=== PATIENT | female | born 1960 | race Caucasian/White ===

== ENCOUNTER 2017-07-09 12:13 | Emergency (ER) | payer BC, OTHER ==
[~2017-07-09 12:13] MED LIST: FLUO20CA8; LISI40TA; OLAN20TA7; RISP1TAB43
--- NOTE | 2017-07-09 12:43 | PHYS DOC ---
Past History Past Medical History: Other Past Surgical History: Other Smoking: Cigarettes, Less than 1pk/day Alcohol Use: Occasionally Drug Use: None Adult General Chief Complaint Chief Complaint: SHOULDER INJURY HPI HPI 57-year-old right-handed female patient states she tried to put a large box in freezer while she was working at [employer]. Her hand above her head and felt a pop in her left shoulder and since then has been feeling in her limited range of motion. Patient denies focal neuro deficit, other injuries, fever and chills. Patient rated her pain moderate if she is not moving her hand and was able to drive from her work to here. Review of Systems Review of Systems Constitutional: Denies fever or chills [] Eyes: Denies change in visual acuity, redness, or eye pain [] HENT: Denies nasal congestion or sore throat [] Respiratory: Denies cough or shortness of breath [] Cardiovascular: No additional information not addressed in HPI [] GI: Denies abdominal pain, nausea, vomiting, bloody stools or diarrhea [] : Denies dysuria or hematuria [] Musculoskeletal: Denies back pain, reports joint pain [] Integument: Denies rash or skin lesions [] Neurologic: Denies headache, focal weakness or sensory changes [] Endocrine: Denies polyuria or polydipsia [] All other systems were reviewed and found to be within normal limits, except as documented in this note. Allergies Allergies Allergies Coded Allergies Type Severity Reaction Last Updated Verified No Known Drug Allergies 08/08/13 No Physical Exam Physical Exam Constitutional: Well developed, well nourished, mild distress, non-toxic appearance. [] HENT: Normocephalic, atraumatic Eyes: PERRLA, EOMI, conjunctiva normal, no discharge. [] Neck: Normal range of motion, no tenderness, supple, no stridor. [] Cardiovascular:Heart rate regular rhythm, no murmur [] Lungs & Thorax: Bilateral breath sounds clear to auscultation [] Abdomen: Bowel sounds normal, soft, no tenderness, no masses, no pulsatile masses. [] Skin: Warm, dry, no erythema, no rash. [] Back: No tenderness, no CVA tenderness. [] Extremities: Left shoulder with deformity in AC joint area associated with tenderness and limited range of motion, no neurovascular deficit. Neurologic: Alert and oriented X 3, normal motor function, normal sensory function, no focal deficits noted. [] Psychologic: Affect normal, judgement normal, mood normal. [] EKG EKG [] Radiology/Procedures Radiology/Procedures [] [address] [address] IMAGING REPORT Signed PATIENT: SAMIR NEUMANN ACCOUNT: [id number] : 1960 LOCATION: ER AGE: 57 SEX: F EXAM STATUS: PRE ER ORD. PHYSICIAN: CAMI MCKEON MD REASON: injury and pain PROCEDURE: SHOULDER 2+V LEFT Left shoulder AP and scapular x-rays 3 views History: Left shoulder lifting injury with popping and pain Findings: There is acromioclavicular joint dissociation the joint interval measuring 12 mm, and mild superior distraction of the lateral clavicle indicating disruption of the joint capsule and possibly the coracoclavicular ligament. No fracture. No humeral head dislocation. Impression: Acromioclavicular joint dissociation as described above. DICTATED AND SIGNED BY: BISMARK BOSCH MD DATE: 07/09/17 [id number] CC: CAMI MCKEON MD; JONATHAN MCCORMACK ~ Course & Med Decision Making Course & Med Decision Making Pertinent Imaging studies reviewed. (See chart for details) Evaluation of patient in ER showed 57-year-old female patient with injury to left shoulder while she was at work. Patient had deformity and tenderness of AC joint area and x-ray showed AC joint separation with 1.5 cm gap. Patient did not want to have pain medication in ER. Shoulder immobilizer was applied and patient instructed to follow up with on-call orthopedic physician for possible surgical repair of AC separation. [] Dragon Disclaimer Dragon Disclaimer This electronic medical record was generated, in whole or in part, using a voice recognition dictation system. Departure Departure: Impression: Primary Impression: Acromioclavicular separation Disposition: HOME, SELF-CARE (At 1254) Condition: IMPROVED Referrals: JONATHAN MCCORMACK (PCP) Patient Instructions: Shoulder Separation Additional Instructions: Follow-up with on-call orthopedic physician , call [phone] tomorrow to make an appointment Return to ER if not getting better Scripts Naproxen (NAPROSYN) 500 Mg Tablet 1 TAB PO BID, #30 TAB 1 Refill Prov: CAMI MCKEON MD 07/09/17 Hydrocodone Bit/Acetaminophen (NORCO 5-325 TABLET) 1 Each Tablet 1 TAB PO PRN Q6HRS Y for PAIN, #20 TAB 0 Refills Prov: CAMI MCKEON MD 07/09/17 CAMI MCKEON MD Jul 09, 2017 12:43
--- NOTE | 2017-07-09 12:54 | RAD ---
Left shoulder AP and scapular x-rays 3 views History: Left shoulder lifting injury with popping and pain Findings: There is acromioclavicular joint dissociation the joint interval measuring 12 mm, and mild superior distraction of the lateral clavicle indicating disruption of the joint capsule and possibly the coracoclavicular ligament. No fracture. No humeral head dislocation. Impression: Acromioclavicular joint dissociation as described above.
[2017-07-09] MEDS ORDERED: NAPR-683 PO (13:00)
[2017-07-09] MEDS ORDERED: HYDR-971 PO (13:00)
[2017-07-09 13:10] VITALS: BP 158/90
== END 2017-07-09 13:11 | disposition home or self-care (01) ==
LOC: ER 12:13
DX: S43.102A Unspecified dislocation of left acromioclavicular joint, initial encounter (principal); F17.210 Nicotine dependence, cigarettes, uncomplicated; X50.9XXA Other and unspecified overexertion or strenuous movements or postures, initial encounter; Y93.89 Activity, other specified; Y99.8 Other external cause status; Y92.89 Other specified places as the place of occurrence of the external cause
CPT/HCPCS: 29105; 73030; 99284

== ENCOUNTER → 2017-09-25 | Outpatient (CLI) | payer OTHER ==
[~2017-09-25] MED LIST changes: +HYDR-971 PO; +NAPR-683 PO
--- NOTE | 2017-09-25 14:06 | RAD ---
Chest, 2 views, 09/25/2017: HISTORY: Preop evaluation for shoulder surgery The heart size and pulmonary vascularity are normal. A small dense nodule in the right upper chest is probably a granuloma. No acute infiltrate is seen. There is no evidence of pleural fluid. Mild scattered spurs are present in the spine. A chronic left AC joint separation is again noted. IMPRESSION: No acute cardiopulmonary abnormality is detected. Electronically signed by: Chano Hollis MD (09/25/2017 2:03 PM) [facility]
== END | disposition home or self-care (01) ==
LOC: PMG 12:44
PROVIDERS: ATTEND Family Medicine
DX: R91.1 Solitary pulmonary nodule (principal); R05 Cough; Z87.891 Personal history of nicotine dependence
CPT/HCPCS: 71046

== ENCOUNTER 2018-08-27 13:48 | Emergency (ER) | payer OTHER ==
[~2018-08-27] VITALS: Ht 168.9 cm; Wt 65.8 kg
[~2018-08-27 13:48] MED LIST changes: +HYDR-3165 PO; -HYDR-971 PO; +OLAN20TA15; -OLAN20TA7
[2018-08-27 14:03] VITALS: BP 160/79
[2018-08-27] MEDS ORDERED: CARBAMIDE PEROXIDE 6.5% OTIC SOLUTION 15ML BOTTLE. AU ONE (14:15)
--- NOTE | 2018-08-27 14:17 | PHYS DOC ---
Past History Past Medical History: Anxiety, Hypertension, [place] Past Surgical History: No Surgical History Smoking: Cigarettes, Less than 1pk/day Additional Smoking Information: 03/21 PPD Alcohol Use: None Drug Use: None Adult General Chief Complaint Chief Complaint: EARACHE/EAR PAIN HPI HPI Patient is a 58-year-old female presents with bilateral ear discomfort, and muffled hearing for the past week to 2 weeks. Patient was seen by her primary care physician, started on antibiotics approximately a week ago and was not getting any better. Was seen last Monday and a CT scan was being arranged as an outpatient but still has not come through. Patient notes that she's had blurred vision for this same time frame. No specific weakness in her arms or legs. No change in speech patterns per her who is with her. No headache. No photophobia. Nothing seems to make the symptoms better or worse. Patient reports hearing a pulse in both the ears. Denies using cotton swabs within the ears.[] Review of Systems Review of Systems Constitutional: Denies fever or chills [] Eyes: See history of present illness[] HENT: Denies nasal congestion or sore throat [] Respiratory: Denies cough or shortness of breath [] Cardiovascular: No chest pain or palpitations[] GI: Denies abdominal pain, nausea, vomiting, bloody stools or diarrhea [] : Denies dysuria or hematuria [] Musculoskeletal: Denies back pain or joint pain [] Integument: Denies rash or skin lesions [] Neurologic: Denies headache, focal weakness or sensory changes [] Endocrine: Denies polyuria or polydipsia [] All other systems were reviewed and found to be within normal limits, except as documented in this note. Allergies Allergies Allergies Coded Allergies Type Severity Reaction Last Updated Verified erythromycin base Allergy Unknown REDNESS 08/27/18 Yes Physical Exam Physical Exam Constitutional: Well developed, well nourished, no acute distress, non-toxic appearance. [] HENT: Normocephalic, atraumatic, bilateral external ears normal, TMs are obstructed by cerumen bilaterally. No mastoid tenderness. Oropharynx moist, no oral exudates, nose normal. [] Eyes: PERRLA, EOMI, conjunctiva normal, no discharge. Normal fundi, anterior chamber is clear on slit lamp, no dendritic pattern identified.[] Neck: Normal range of motion, no tenderness, supple, no stridor. [] Cardiovascular:Heart rate regular rhythm, no murmur [] Lungs & Thorax: Bilateral breath sounds clear to auscultation [] Abdomen: Not examined[] Skin: Warm, dry, no erythema, no rash. [] Back: No tenderness, no CVA tenderness. [] Extremities: No tenderness, no cyanosis, no clubbing, ROM intact, no edema. [] Neurologic: Alert and oriented X 3, normal motor function, normal sensory function, no focal deficits noted. [] Psychologic: Affect normal, judgement normal, mood normal. [] Current Patient Data Vital Signs Vital Signs Date Time Temp Pulse Resp B/P (MAP) Pulse Ox O2 Delivery O2 Flow Rate FiO2 08/27/18 14:03 97.7 71 17 97 EKG EKG [] Radiology/Procedures Radiology/Procedures CT HEAD WO CONTRAST Indication: Vision changes. Bilateral ear pain. Exposure: One or more of the following individualized dose reduction techniques were utilized for this examination: 1. Automated exposure control 2. Adjustment of the mA and/or kV according to patient size 3. Use of iterative reconstruction technique. Technique: Standard imaging without intravenous contrast. Comparison with images from 12/12/2014, no report available Posterior fossa unremarkable. No evidence of acute intracranial hemorrhage, mass effect, midline shift or abnormal extra-axial fluid collection. Ventricles and sulci are within normal limits. Nicholas-white matter distinction is maintained. The orbits are symmetric. No notable scalp swelling. Partially visualized paranasal sinuses are clear. There is some opacification of the bilateral mastoids. No acute skull abnormality. IMPRESSION: 1. No evidence of acute intracranial hemorrhage or mass effect. 2. Nonspecific mastoid sinus disease.[] Course & Med Decision Making Course & Med Decision Making Pertinent Labs and Imaging studies reviewed. (See chart for details) ED course: Patient arrived, was placed in bed, and tolerated exam well. She was transported to and from [place] with any complications. She had her ears irrigated with minimal improvement. Discussed findings and plan with patient and her family who voiced understanding. All questions were answered. She was discharged in improved condition. Medical decision making: There is no evidence of significant mastoiditis, no meningitis or encephalitis. We will have patient continue current course of antibiotics. We will have her continue the irrigation with the Debrox.[] Dragon Disclaimer Dragon Disclaimer This electronic medical record was generated, in whole or in part, using a voice recognition dictation system. Departure Departure: Impression: Primary Impression: Mastoiditis Additional Impression: Impacted cerumen of both ears Disposition: 01 HOME, SELF-CARE Condition: IMPROVED Referrals: JONATHAN MCCORMACK (PCP) Follow-up in 2 days Patient Instructions: Cerumen Impaction, Mastoiditis Additional Instructions: Follow-up with your regular doctor in 2 days. Take your medication as prescribed. Return to the ER if worsening pain or any other concerns. Scripts Meloxicam (MELOXICAM) 7.5 Mg Tablet 7.5 MG PO DAILY for PAIN, #20 TAB Prov: ELSA HAN DO 08/27/18 Carbamide Peroxide (EAR DROPS) 15 Ml Drops 5 DROP OT BID for cerumen for 4 Days, DROP Let the drops sit in the ear for 5-10 minutes, then flush out with warm water in the shower. Prov: ELSA HAN DO 08/27/18 Problem Qualifiers Primary Impression: Mastoiditis Laterality: bilateral Qualified Codes: H70.93 - Unspecified mastoiditis, bilateral ELSA HAN DO Aug 27, 2018 14:17
--- NOTE | 2018-08-27 14:40 | RAD ---
CT HEAD WO CONTRAST Indication: Vision changes. Bilateral ear pain. Exposure: One or more of the following individualized dose reduction techniques were utilized for this examination: 1. Automated exposure control 2. Adjustment of the mA and/or kV according to patient size 3. Use of iterative reconstruction technique. Technique: Standard imaging without intravenous contrast. Comparison with images from 12/12/2014, no report available Posterior fossa unremarkable. No evidence of acute intracranial hemorrhage, mass effect, midline shift or abnormal extra-axial fluid collection. Ventricles and sulci are within normal limits. Nicholas-white matter distinction is maintained. The orbits are symmetric. No notable scalp swelling. Partially visualized paranasal sinuses are clear. There is some opacification of the bilateral mastoids. No acute skull abnormality. IMPRESSION: 1. No evidence of acute intracranial hemorrhage or mass effect. 2. Nonspecific mastoid sinus disease. Electronically signed by: Martell Londono MD (08/27/2018 2:38 PM) [facility]
[2018-08-27] MEDS ORDERED: CARB-116 OT (15:42)
[2018-08-27] MEDS ORDERED: MELO7.5T29 PO (15:42)
== END 2018-08-27 15:50 | disposition home or self-care (01) ==
LOC: ER 13:48
DX: H70.93 Unspecified mastoiditis, bilateral (principal); H61.23 Impacted cerumen, bilateral; H53.8 Other visual disturbances; F41.9 Anxiety disorder, unspecified; I10 Essential (primary) hypertension; I25.2 Old myocardial infarction; F17.210 Nicotine dependence, cigarettes, uncomplicated; Z88.1 Allergy status to other antibiotic agents
CPT/HCPCS: 69209; 70450; 99284-25

== ENCOUNTER → 2019-04-08 | Outpatient (CLI) | payer BC ==
[~2019-04-08] MED LIST changes: +CARB-116 OT; +FLUO20CA19; -FLUO20CA8; +MELO7.5T29 PO
--- NOTE | 2019-04-08 10:00 | RAD ---
Study: CT abdomen and pelvis without contrast Indication: Left abdominal pain. Comparison: 03/23/2015 Technique: Helical CT imaging performed of the abdomen and pelvis without the use of intravenous contrast. Sagittal and coronal reformats were obtained. One or more of the following individualized dose reduction techniques were utilized for this examination: 1. Automated exposure control 2. Adjustment of the mA and/or kV according to patient size 3. Use of iterative reconstruction technique. Findings: Unremarkable visualized lungs and heart. Faintly visualized low-attenuation focus within the right hepatic lobe on image 39 series 2 was present on the prior. Unremarkable gallbladder, pancreas, spleen and adrenal glands. Unchanged tiny low-attenuation focus within the mid right kidney. No hydroureteronephrosis. Unremarkable urinary bladder. The uterus is within normal limits. No adnexal mass. A few colonic diverticuli are noted without findings of diverticulitis. The majority of the colon is collapsed. Unremarkable appendix. Nonobstructed small bowel. Limited evaluation stomach due to underdistention. Scattered vascular calcifications. No newly seen lymphadenopathy. No free fluid or air. Severe discogenic arthrosis at L1-L2. Moderate discogenic arthrosis at L2-L3. Grade 1 anterolisthesis of L4 on L5. Trace retrolisthesis of L2 on L3. Scattered Schmorl's nodes. Multilevel facet degeneration. Multilevel central canal stenosis that is most pronounced at L4-L5 and possibly severe at this level in the setting of a disc bulge/protrusion. Impression: 1. No acute abnormality seen throughout the abdomen or pelvis. A few colonic diverticuli are noted however without findings of diverticulitis. 2. Advanced multilevel/multifactorial degenerative changes involving the lumbar spine with possible severe central canal stenosis at L4-L5. Electronically signed by: JAMILA GARCÍA MD (04/08/2019 9:57 AM) [facility]
[2019-04-08 11:01] LABS: BASO # 0.1 x10^3/uL (0.0-0.2); BASO % 1 % (0-3); EOS # 0.1 x10^3/uL (0.0-0.7); EOS % 1 % (0-3); HEMATOCRIT 39.6 % (36.0-47.0); HEMOGLOBIN 13.5 g/dL (12.0-15.5); LYMPH # 1.6 x10^3/uL (1.0-4.8); LYMPH % 36 % (24-48); MEAN CORPUSCULAR HEMOGLOBIN 34 pg (25-35); MEAN CORPUSCULAR HGB CONC 34 g/dL (31-37); MEAN CORPUSCULAR VOLUME 101 fL (79-100); MONO # 0.6 x10^3/uL (0.0-1.1); MONO % 14 % (0-9); NEUT # 2.1 x10^3uL (1.8-7.7); NEUT % 48 % (31-73); PLATELET COUNT 184 x10^3/uL (140-400); RED BLOOD COUNT 3.93 x10^6/uL (3.50-5.40); RED CELL DISTRIBUTION WIDTH 13.5 % (11.5-14.5); WHITE BLOOD COUNT 4.4 x10^3/uL (4.0-11.0)
[2019-04-08 11:16] LABS: ALBUMIN 3.9 g/dL (3.4-5.0); CALCIUM 9.2 mg/dL (8.5-10.1); CREATININE 0.6 mg/dL (0.6-1.0); GFR 102.7; POTASSIUM 3.6 mmol/L (3.5-5.1); TOTAL BILIRUBIN 0.9 mg/dL (0.2-1.0); TOTAL PROTEIN 7.9 g/dL (6.4-8.2)
[2019-04-08 12:06] LABS: SEDIMENTATION RATE 23 (0-25)
== END | disposition home or self-care (01) ==
LOC: CT 09:21
PROVIDERS: ATTEND Physician Assistant Medical
DX: M43.16 Spondylolisthesis, lumbar region (principal); K57.30 Diverticulosis of large intestine without perforation or abscess without bleeding; M47.816 Spondylosis without myelopathy or radiculopathy, lumbar region
CPT/HCPCS: 36415; 74176; 80053; 80061; 85025; 85651

== ENCOUNTER 2020-09-16 11:27 | Emergency (ER) | payer BC ==
[~2020-09-16] VITALS: Ht 167.6 cm; Wt 68.2 kg
[~2020-09-16 11:27] MED LIST changes: -FLUO20CA19; +FLUO20CA20; -LISI40TA; +LISI40TA6
[2020-09-16 11:42] VITALS: BP 129/76
[2020-09-16] MEDS ORDERED: AMOXICILLIN/K CLAV 875/125MG TABLET. PO ONE (11:45)
[2020-09-16] MEDS ORDERED: NEOMY/BACITR/POLYMYXIN OINT PACKET. TP ONE (11:45)
[2020-09-16] MEDS ORDERED: AMOX1TAB61 PO (11:53)
--- NOTE | 2020-09-16 11:54 | PHYS DOC ---
Past History Past Medical History: Anxiety, Depression, Hypertension, [place] Past Surgical History: No Surgical History Smoking: Cigarettes, Less than 1pk/day Alcohol Use: None Drug Use: None General Adult EDM: Chief Complaint: ANIMAL BITE HPI: HPI: 60-year-old female presents with report of dog bite above left eye and to right wrist which occurred just prior to arrival. Patient reports occurred with her own dogs which are domesticated. Patient reports they missed their last dose of rabies vaccination secondary to COVID-19 limitations in getting dog to the vet h owever have a been at home the whole time. Denies known exposure to rabies. Dogs have otherwise been acting normally. Patient reports last tetanus booster less than 5 years ago. Review of Systems: Review of Systems: Constitutional: Denies fever or chills Eyes: Denies redness or eye pain HENT: Denies epistaxis Musculoskeletal: Reports pain to right wrist at site of dog bite; denies deformity Integument: Reports puncture wounds to right wrist and above left eye Neurologic: Denies headache, focal weakness or sensory changes Complete systems were reviewed and found to be within normal limits, except as documented in this note. Current Medications: Current Meds: Current Medications Medications (Trade) Dose Ordered Sig/Ángel Start Time Stop Time Status Last Admin Dose Admin Amoxicillin/ Clavulanate Potassium (Augmentin 875/ 125mg) 1 tab 1X ONCE 09/16/20 11:45 09/16/20 11:46 DC Neomycin/ Polymyxin/ Bacitracin (Triple Antibiotic Ointment) 1 pkt 1X ONCE 09/16/20 11:45 09/16/20 11:46 DC Allergies: Allergies: Allergies Coded Allergies Type Severity Reaction Last Updated Verified erythromycin base Allergy Unknown REDNESS 08/27/18 Yes Physical Exam: PE: Constitutional: Well developed, well nourished, no acute distress, non-toxic appearance HENT: Normocephalic, small abrasion/puncture wound to 1 o'clock position above left eye, no gaping appreciated Eyes: PERRL, EOMI, conjunctiva normal, no discharge Neck: Normal range of motion, no tenderness, supple Lungs & Thorax: No respiratory distress, equal chest rise and fall Skin: Warm, dry, no erythema small abrasion/puncture wound above left eye and multiple noted to dorsal and ventral aspects right wrist-bleeding controlled Extremities: No bony tenderness, ROM intact, no edema, right radial pulse +2, tendon function intact to right hand and wrist Neurologic: Alert and oriented X 3, no focal deficits noted Psychologic: Affect normal, judgment normal Current Patient Data: Vital Signs: Vital Signs Date Time Temp Pulse Resp B/P (MAP) Pulse Ox O2 Delivery O2 Flow Rate FiO2 09/16/20 11:42 95 18 129/76 (93) 98 EKG: EKG: [] Radiology/Procedures: Radiology/Procedures: [] Heart Score: C/O Chest Pain: N/A Course & Med Decision Making: Course & Med Decision Making Patient presents with domesticated dog bites to right wrist and above left eye. Tendon function intact to right wrist and hand. Limb neurovascular intact. No eye involvement. No gaping of wounds requiring suture repair. Wounds cleaned and copiously irrigated. Empiric antibiotic ointment applied. Patient's tetanus is up-to-date. Empiric antibiotic initiated. Patient stable for discharge with outpatient follow-up with PCP. Discussed findings and plan with patient and family, who acknowledge understanding and agreement. Santosh Disclaimer: Santosh Disclaimer: This electronic medical record was generated, in whole or in part, using a voice recognition dictation system. Departure Departure: Impression: Primary Impression: Dog bite Qualified Codes: W54.0XXA - Bitten by dog, initial encounter Disposition: HOME / SELF CARE / HOMELESS Condition: STABLE Referrals: JONATHAN MCCORMACK (PCP) Patient Instructions: Animal Bite, [id number] Additional Instructions: Do not soak your wound. You may shower. Clean wound daily with soap and water. Change dressing 2 times daily. Use over the counter antibiotic ointment with each dressing change. Use over the counter Tylenol and /or Ibuprofen for pain or discomfort. May ICE area 20 min on then leave off next 20 mins. Repeat several times daily as needed for swelling or pain. Scripts Amoxicillin/Potassium Clav (AUGMENTIN 875-125 TABLET) 1 Each Tablet 1 TAB PO BID for Dog bite for 7 Days, #14 TAB 0 Refills Prov: JULIO MARRERO DO 09/16/20 JULIO MARRERO DO Sep 16, 2020 11:54
== END 2020-09-16 12:07 | disposition home or self-care (01) ==
LOC: ER 11:27
DX: S61.531A Puncture wound without foreign body of right wrist, initial encounter (principal); S01.83XA Puncture wound without foreign body of other part of head, initial encounter; I10 Essential (primary) hypertension; I25.2 Old myocardial infarction; F17.210 Nicotine dependence, cigarettes, uncomplicated; Z88.1 Allergy status to other antibiotic agents; W54.0XXA Bitten by dog, initial encounter; Y93.89 Activity, other specified; Y92.89 Other specified places as the place of occurrence of the external cause; Y99.8 Other external cause status
CPT/HCPCS: 99283

== ENCOUNTER 2020-09-17 12:37 | Emergency (ER) | payer BC ==
[~2020-09-17] VITALS: Ht 167.6 cm; Wt 68.2 kg
[~2020-09-17 12:37] MED LIST changes: +AMOX1TAB61 PO
[2020-09-17] MEDS ORDERED: MORPHINE SULFATE 10 MG/ML SYRINGE. ONE (13:10)
[2020-09-17] MEDS: MORPHINE SULFATE 10 MG/ML SYRINGE. SQ ONE (13:15)
[2020-09-17] MEDS: ONDANSETRON ODT 4 MG TAB.RAPDIS PO ONE (13:15)
--- NOTE | 2020-09-17 13:59 | RAD ---
2 views of each forearm 09/17/2020 1:22 PM Indication: Reason: dog bites to bilateral forearms / Spl. Instructions: / History: Comparison: None Findings: There is a comminuted fracture of the distal left ulna. Fracture does not involve the artic ular surface. There is mild ulnar displacement of the distal fracture fragment. There is mild volar a ngulation. Overlying soft tissue swelling and deformity is seen. No other fracture or dislocation is seen. No right-sided fracture is seen. No radiopaque foreign bodies are identified. IMPRESSION: Comminuted fracture of the distal left ulna. Electronically signed by: Ernie Clancy MD (09/17/2020 1:56 PM) [id number]
[2020-09-17] MEDS ORDERED: IV NORMAL SALINE 50ML 50 ML ONE (14:43)
[2020-09-17] MEDS ORDERED: PIPERACILLIN/TAZOBACTAM 3.375 GM VIAL IV ONE (14:44)
[2020-09-17 14:45] LABS: BASO # 0.1 x10^3/uL (0.0-0.2); BASO % 1 % (0-3); EOS % 0 % (0-3); HEMATOCRIT 39.4 % (36.0-47.0); HEMOGLOBIN 13.6 g/dL (12.0-15.5); LYMPH % 10 % (24-48); MEAN CORPUSCULAR HEMOGLOBIN 36 pg (25-35); MEAN CORPUSCULAR HGB CONC 35 g/dL (31-37); MEAN CORPUSCULAR VOLUME 103 fL (79-100); MONO # 0.8 x10^3/uL (0.0-1.1); MONO % 8 % (0-9); NEUT % 81 % (31-73); PLATELET COUNT 132 x10^3/uL (140-400); RED BLOOD COUNT 3.83 x10^6/uL (3.50-5.40); RED CELL DISTRIBUTION WIDTH 13.7 % (11.5-14.5); WHITE BLOOD COUNT 9.8 x10^3/uL (4.0-11.0)
[2020-09-17] MEDS: HYDROmorphone PF 1 MG/ML DISP.SYRIN IVP ONE ×4 (14:54→18:50)
[2020-09-17 14:55] LABS: CALCIUM 8.9 mg/dL (8.5-10.1); CREATININE 0.6 mg/dL (0.6-1.0); POTASSIUM 4.1 mmol/L (3.5-5.1)
[2020-09-17] MEDS: PIPERACILLIN/TAZOBACTAM 3.375 GM in IV NORMAL SALINE 50ML 50 ML IV ONE (14:55)
[2020-09-17 15:01] LABS: ALBUMIN 4.1 g/dL (3.4-5.0); ALBUMIN/GLOBULIN RATIO 1.1 (1.0-1.7); TOTAL BILIRUBIN 1.3 mg/dL (0.2-1.0); TOTAL PROTEIN 7.7 g/dL (6.4-8.2)
--- NOTE | 2020-09-17 15:33 | PHYS DOC ---
Past History Past Medical History: Anxiety, Depression, Hypertension, [place] Past Surgical History: No Surgical History Smoking: Cigarettes, Less than 1pk/day Alcohol Use: None Drug Use: None Adult General Chief Complaint Chief Complaint: ANIMAL BITE HPI HPI Patient is a 60-year-old female presenting for dog bite. She was seen yesterday for dog bite as well. She has a Pomeranian, a pitbull and [place] Gaitan at home. She reports yesterday breaking up a fight between her dogs when her pit bull bit her right forearm. She was seen and evaluated at our facility, received appropriate care such as updating tetanus, site was cleaned and covered, and patient was sent home on Augmentin. Reports within 30 minutes of being home, her [place] Gaitan bit her left forearm. She reported immediate focal pain that was ongoing but in fear of having her dogs removed from her, she did not present for evaluation. She reports focal pain that is sharp in nature and nonradiating that persisted overnight. She slept poorly, states she was left alone at times when her was not home and she could not perform activities of daily living such as cleaning herself up after bowel movements due to pain in bilateral arms. She presents today 24 hours after subsequent dog bite to left forearm for evaluation due to ongoing pain. She is concerned that bilateral forearms are broke, she is requesting her right upper extremity be imaged as this was not done yesterday. She reports her dogs are up-to-date on all other vaccines Review of Systems Review of Systems Fourteen body systems of review of systems have been reviewed. See HPI for pertinent positives and negative responses, other tolentino all other systems are negative, non-pertinent or non-contributory Current Medications Current Medications Current Medications Medications (Trade) Dose Ordered Sig/Ángel Start Time Stop Time Status Last Admin Dose Admin Hydromorphone HCl (Dilaudid) 1 mg 1X ONCE 09/17/20 14:30 09/17/20 14:38 DC 09/17/20 14:54 1 MG Morphine Sulfate (Morphine 10mg Syringe) 10 mg STK-MED ONCE 09/17/20 13:10 09/17/20 13:11 DC Ondansetron HCl (Zofran Odt) 4 mg 1X ONCE 09/17/20 13:15 09/17/20 13:16 DC 09/17/20 13:15 4 MG Piperacillin Sod/ Tazobactam Sod (Zosyn) 3.375 gm STK-MED ONCE 09/17/20 14:44 09/17/20 14:44 DC Piperacillin Sod/ Tazobactam Sod 3.375 gm/Sodium Chloride 50 ml @ 100 mls/hr 1X ONCE 09/17/20 14:30 09/17/20 14:59 DC 09/17/20 14:55 100 MLS/HR Sodium Chloride 50 ml @ As Directed STK-MED ONCE 09/17/20 14:43 09/17/20 14:44 DC Allergies Allergies Allergies Coded Allergies Type Severity Reaction Last Updated Verified erythromycin base Allergy Unknown REDNESS 09/17/20 Yes Physical Exam Physical Exam Constitutional: Well developed, well nourished, extremely anxious and appears to be in pain but nontoxic in appearance HENT: Normocephalic, atraumatic, bilateral external ears normal, oropharynx moist, no oral exudates, nose normal. Eyes: PERRLA, EOMI, conjunctiva normal, no discharge. Neck: Normal range of motion, no tenderness, supple, no stridor. Cardiovascular: Heart rate tachycardic, sinus rhythm, no murmurs rubs or gallops Lungs & Thorax: Bilateral breath sounds clear to auscultation Abdomen: Bowel sounds normal, soft, no tenderness, no masses, no pulsatile masses. Nonsurgical abdomen, no peritoneal signs Skin: Warm, dry, no erythema, no rash. Patient not wanting me to unwrap prior dressing that was applied yesterday to right forearm due to pain. Dressing appears mildly soaked with blood otherwise nonconcerning. There is significant puncture and skin breakdown to left forearm consistent with [place] Gaitan bite with no obvious foreign body and/or vessel/nerve involvement, there is no open fracture Back: No tenderness, no CVA tenderness. Extremities: There is focal tenderness to left forearm over area of puncture wound without any anatomical snuffbox tenderness, no cyanosis, no clubbing, ROM intact, no edema. Patient's muscle strength of bilateral upper extremities is 5/5 but there is pain globally with movement due to injury, cap refill of all distal nailbeds less than 3 seconds Neurologic: Alert and oriented X 3, medial radial and ulnar nerves of bilateral upper extremities intact, normal motor & sensory function, no focal deficits noted. Radial pulses bilaterally 2+ Psychologic: Anxious affect and mood Current Patient Data Vital Signs Vital Signs Date Time Temp Pulse Resp B/P (MAP) Pulse Ox O2 Delivery O2 Flow Rate FiO2 09/17/20 14:54 22 96 09/17/20 12:54 97.8 86 159/100 Lab Results Laboratory Tests Test 09/17/20 14:10 White Blood Count 9.8 x10^3/uL (4.0-11.0) Red Blood Count 3.83 x10^6/uL (3.50-5.40) Hemoglobin 13.6 g/dL (12.0-15.5) Hematocrit 39.4 % (36.0-47.0) Mean Corpuscular Volume 103 fL (79-100) H Mean Corpuscular Hemoglobin 36 pg (25-35) H Mean Corpuscular Hemoglobin Concent 35 g/dL (31-37) Red Cell Distribution Width 13.7 % (11.5-14.5) Platelet Count 132 x10^3/uL (140-400) L Neutrophils (%) (Auto) 81 % (31-73) H Lymphocytes (%) (Auto) 10 % (24-48) L Monocytes (%) (Auto) 8 % (0-9) Eosinophils (%) (Auto) 0 % (0-3) Basophils (%) (Auto) 1 % (0-3) Neutrophils # (Auto) 8.0 x10^3uL (1.8-7.7) H Lymphocytes # (Auto) 1.0 x10^3/uL (1.0-4.8) Monocytes # (Auto) 0.8 x10^3/uL (0.0-1.1) Eosinophils # (Auto) 0.0 x10^3/uL (0.0-0.7) Basophils # (Auto) 0.1 x10^3/uL (0.0-0.2) Sodium Level 140 mmol/L (136-145) Potassium Level 4.1 mmol/L (3.5-5.1) Chloride Level 103 mmol/L (98-107) Carbon Dioxide Level 24 mmol/L (21-32) Anion Gap 13 (6-14) Blood Urea Nitrogen 15 mg/dL (7-20) Creatinine 0.6 mg/dL (0.6-1.0) Estimated GFR (Cockcroft-Gault) 102.0 BUN/Creatinine Ratio 25 (6-20) H Glucose Level 111 mg/dL (70-99) H Calcium Level 8.9 mg/dL (8.5-10.1) Total Bilirubin 1.3 mg/dL (0.2-1.0) H Aspartate Amino Transferase (AST) 69 U/L (15-37) H Alanine Aminotransferase (ALT) 101 U/L (14-59) H Alkaline Phosphatase 93 U/L (46-116) Total Protein 7.7 g/dL (6.4-8.2) Albumin 4.1 g/dL (3.4-5.0) Albumin/Globulin Ratio 1.1 (1.0-1.7) EKG EKG [] Radiology/Procedures Radiology/Procedures 2 views of each forearm 09/17/2020 1:22 PM Indication: Reason: dog bites to bilateral forearms / Spl. Instructions: / History: Comparison: None Findings: There is a comminuted fracture of the distal left ulna. Fracture does not involve the articular surface. There is mild ulnar displacement of the distal fracture fragment. There is mild volar angulation. Overlying soft tissue swelling and deformity is seen. No other fracture or dislocation is seen. No right-sided fracture is seen. No radiopaque foreign bodies are identified. IMPRESSION: Comminuted fracture of the distal left ulna. Electronically signed by: Ernie Clancy MD (09/17/2020 1:56 PM) [id number] Heart Score C/O Chest Pain: No Risk Factors: Risk Factors: DM, Current or recent (<one month) smoker, HTN, HLP, family history of CAD, obesity. Risk Scores: Risk Factors: DM, Current or recent (<one month) smoker, HTN, HLP, family history of CAD, obesity. Course & Med Decision Making Course & Med Decision Making ABCs unremarkable. IV access and vitals obtained concerning for hypertension only HPI and physical exam obtained, subsequent ER work-up obtained concerning for closed fracture of left ulna and concerning skin findings and puncture wound from dog greater than 24 hours ago Patient's tetanus vaccine is up-to-date, she is on appropriate antibiotics. With that said, given extent of injuries orthopedic services at called and case discussed. It was recommended patient be started on IV antibiotics and transferred over for further intervention I contacted hospitalist and reviewed need for hospital transfer, patient was excepted under their care I updated patient and at bedside on proposed plan of care that included hospital transfer and they were amenable. All questions and concerns addressed prior to hospital transfer via EMS Basic ulnar gutter splint applied to left upper extremity with recheck performed by myself, patient neurovascularly intact prior to departure Critical Care Time This patient required critical care. Due to the fact that the patient required a significant amount of one on one physician - patient contact time, ordering and review of studies, arranging urgent treatment with development of a management plan, evaluation of patients response to treatment with frequent reassessments, and discussions with other providers this patient required 45 minutes of critical care time. Critical care time was indicated due to the inherent instability and/or potential for instability in this patient. The critical care time that is allocated to this patient is above and beyond any time spent on any other billable procedures performed on this patient. Dragon Disclaimer Dragon Disclaimer This electronic medical record was generated, in whole or in part, using a voice recognition dictation system. Departure Departure: Impression: Primary Impression: Closed fracture of left ulna Additional Impression: Dog bite of arm Disposition: [facility] ([facility]) Admitting Physician: Other (dr arias) Condition: STABLE Referrals: JONATHAN MCCORMACK (PCP) Problem Qualifiers HARVEY COUCH DO Sep 17, 2020 15:33
[2020-09-17] MEDS ORDERED: diphenhydrAMINE HCL 25 MG CAPSULE PO ONE (16:58)
[2020-09-17] MEDS ORDERED: oxyCODONE/APAP 5/325 1 TAB TABLET ONE (16:58)
[2020-09-17] MEDS: oxyCODONE/APAP 5/325 1 TAB TABLET PO ONE (17:01)
[2020-09-17] MEDS: diphenhydrAMINE HCL 25 MG CAPSULE PO ONE (17:01)
[2020-09-17 18:45] VITALS: BP 131/86
== END 2020-09-17 18:51 | disposition short-term general hospital (02) ==
LOC: ER 12:37
DX: S52.252A Displaced comminuted fracture of shaft of ulna, left arm, initial encounter for closed fracture (principal); I10 Essential (primary) hypertension; F17.210 Nicotine dependence, cigarettes, uncomplicated; F41.9 Anxiety disorder, unspecified; F32.9 Major depressive disorder, single episode, unspecified; I25.2 Old myocardial infarction; Z88.1 Allergy status to other antibiotic agents; W54.0XXA Bitten by dog, initial encounter; Y93.89 Activity, other specified; Y92.89 Other specified places as the place of occurrence of the external cause; Y99.8 Other external cause status
CPT/HCPCS: 29125; 36415; 73090; 80053; 85025; 96365; 96372; 96375; 96376; 99285; J1170; J2270; J2543; Q0162; Q0163

== ENCOUNTER → 2020-12-14 | Outpatient (CLI) | payer BC ==
--- NOTE | 2020-12-15 03:39 | RAD ---
EXAM: 3 views left wrist DATE: 12/14/2020 1:50 PM INDICATION: Reason: LEFT WRIST FOLLOW UP, INJURY AUGUST 2020 / Spl. Instructions: / History: . COMPARISON: No Prior FINDINGS/ IMPRESSION: Screw plate fixation of the distal ulnar fracture in good alignment without definite hardware complic ation. Trace periosteal reaction may suggest early signs of healing. Moderate associated soft tissue swelling. Decreased bone mineral density. Electronically signed by: Robert Stewart MD (12/15/2020 3:37 AM) MAYTE
== END ==
LOC: RAD 13:36
PROVIDERS: ATTEND Physician Assistant
DX: M25.532 Pain in left wrist (principal); M79.89 Other specified soft tissue disorders
CPT/HCPCS: 73110

== ENCOUNTER → 2021-04-23 | Outpatient (CLI) | payer BC ==
[~2021-04-23] MED LIST changes: -FLUO20CA20; +FLUO20CA22
--- NOTE | 2021-04-23 09:17 | RAD ---
Left wrist 3 views. HISTORY: Postop wrist fracture 3 views were taken of the left wrist. Comparison is made with a study from December 14, 2020. Fractu re line is still partially evident at the fracture the distal ulna. There is lucency about the proxim al end of the plate and screws which can be seen with infection or motion. Fracture is partially obsc ured by the plate. IMPRESSION: 1. Incomplete healing at the fracture line. 2. Lucency about the proximal end of the plate possible infection or motion. Electronically signed by: Nick Avery MD (04/23/2021 9:14 AM) [id number]
== END ==
LOC: RAD 08:48
PROVIDERS: ATTEND Physician Assistant
DX: S52.602D Unspecified fracture of lower end of left ulna, subsequent encounter for closed fracture with routine healing (principal); W54.0XXD Bitten by dog, subsequent encounter
CPT/HCPCS: 73110